=== PATIENT | male | born 1990 | race Two or more races ===

== ENCOUNTER 2017-03-14 22:24 | Emergency (ER) | payer OTHER ==
[~2017-03-14] VITALS: Ht 165.1 cm; Wt 74.8 kg
--- NOTE | 2017-03-14 23:15 | Emergency Room Report ---
History of Present Illness Time Seen by [id number] Presenting Problem in Triage Pt arrived:Wheelchair Presenting Problem:TOBACCO POISONING AFTER WORKING OUT IN [employer] TODAY Onset of symptoms date/time:03/14/17/ or onset unknown for:MEDICAL HX UNKNOWN Treatment Prior to Arrival: [employer] Provided by: Sepsis Risk Assessment: Temp: 98 B/P: 123/75 MAP: 91 Pulse: 76 Resp: 14 Recent fever? N Clinical Suspician of Infection? N Mental Status: 1 - Regular (Normal Baseline) Sepsis Risk:Low Sepsis Risk Have you (or family members/close friends) recently traveled outside the [place]? N If Yes, where/when: Have you had exposure to infectious disease within the past month? N TB? Other? Specify: Source patient, RN notes reviewed, family, old records Exam Limitations language barrier Comment n/v with abd pain after exposure to tob today Cardiac Chest Pain Chest pain indicative of cardiac No Timing/Duration this evening Severity moderate ALLERGIES Coded Allergies: No Known Drug Allergies (NKDA) (03/14/17) Home Medications Reported Medications ASPIRIN (Aspirin) 81 MG PO DAILY History Medical History General Hypertension? No CHF? No COPD? No Asthma? No CVA? No Seizures? No Diabetes? No TB? No Immunization Hx DT/Tetanus UNKNOWN Surgical Hx Previous Surgery?N Social History Smoking Hx Smoker: Never Smoker Tobacco: No Alcohol Alcohol: No Drugs none Review of Systems All Other Systems Reviewed and Negative Constitutional denies fever Eyes denies drainage ENT denies: ear discharge, epistaxis, throat pain. Respiratory denies cough, denies shortness of breath, denies wheezing Cardiovascular denies chest pain, denies palpitations, denies syncope Gastrointestinal see HPI, denies diarrhea, nausea, vomiting Genitourinary denies: dysuria, frequency, hesitancy, hematuria. Musculoskeletal denies back pain, denies joint pain, denies neck pain Skin denies rash Psychiatric/Neurological denies headache, denies seizure Physical Exam Vital Signs Vital Signs Date Time Temp Pulse Resp B/P Pulse O2 O2 Flow FiO2 Ox Delivery Rate 03/14 2243 98.0 76 14 123/75 99 - WBC >12,000 or <4,000 or 10% bands? 2 or more SIRS Criteria Met? B/P:123/75 MAP:91 Creatinine >2.0? UA output<0.5ml/kg/hr for 2 hrs? Platelet count >100,000? Lactate >2.0mmol/1? INR >1.2 or PTT > than 60 sec? Evidence of Organ Dysfunction? Provider documented clinical suspician of infection? N Sepsis Criteria Count: 0 Sepsis Risk: Low Sepsis Risk General Appearance no apparent distress Eye Exam - bilateral eye PERRL, bilateral eye EOMI Ear, Nose, Throat normal ENT inspection Neck supple Respiratory Status No: respiratory distress. Lung Sounds bilateral: lungs clear. 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 No Results/Orders Laboratory Tests 03/14/170: Sodium 134 L, Potassium 4.0, Chloride 101, Carbon Dioxide 26, BUN 18, Creatinine 1.0, Estimated Creat Clear 120, Estimated GFR (MDRD) 91, Glucose 125 H, Calcium 9.0, Total Bilirubin 0.4, AST 39 H, ALT 60, Alkaline Phosphatase 111 , Total Protein 7.9, Albumin 4.2, Globulin 3.7 H, Albumin/Globulin Ratio 1.1, Lipase 86, WBC 8.4, RBC 5.32, Hgb 15.4, Hct 45.8, MCV 86.1, RDW 12.3, Plt Count 282, MPV 6.7 L, Gran % 74.3, Gran # 6.2, Lymphocytes % 20.5, Monocytes % 3.8, Eosinophils % 0.7, Basophils % 0.6, Lymphocytes # 1.7, Monocytes # 0.3, Eosinophils # 0.1, Basophils # 0.1, PUBS MCHC 33.7, MCH 29.0 Current Medication Orders Sig/Val Start time Last Medication Dose Route Stop Time Status Admin Sodium Chloride 1,000 ML .STK-MED ONE 03/14 2310 DC IV Famotidine 0 .STK-MED ONE 03/14 2309 DC IV Metoclopramide HCl 0 .STK-MED ONE 03/14 2308 DC .ROUTE Ondansetron HCl 0 .STK-MED ONE 03/14 2308 DC .ROUTE Famotidine 20 MG ONCE ONE 03/14 2245 DC 03/14 IV 03/14 2246 2311 Metoclopramide HCl 10 MG ONCE ONE 03/14 2245 DC 03/14 IVP 03/14 2246 2312 Ondansetron HCl 4 MG ONCE ONE 03/14 2245 DC 03/14 IV 03/14 2246 2311 Sodium Chloride 10 ML PRN PRN 03/14 224 AC IV 03/15 224 Sodium Chloride 1,000 ML .Q1H1M 03/14 224 AC 03/14 IV 03/14 2345 2310 Sodium Chloride 10 ML PRN PRN 03/14 2245 AC IV 03/15 224 Sodium Chloride 8 ML ONCE ONE 03/14 2245 DC 03/14 IV 03/14 2246 2312 Orders Procedure Date/time Status IV SALINE LOCK 03/14 224 Active URINALYSIS/COMPLETE 03/14 2242 Active LIPASE 03/14 2242 Complete COMPLETE METABOLIC PANEL 03/14 2242 Complete CBC WITH AUTO DIFF 03/14 2242 Complete Departure Departure Time of Disposition 2320 Disposition DC Home or Self Care(routine) Clinical Impression Primary Impression: Tobacco poisoning Qualifiers: Encounter type: initial encounter Injury intent: accidental or unintentional Qualified Code: T65.291A - Toxic effect of other tobacco and nicotine, accidental (unintentional), initial encounter Condition STABLE Patient Instructions DI for Vomiting -- Adult Additional Instructions fluids and see pcp for follow up or recheck Discharge Counseling Counseled pt/family regarding diagnosis, test results, medications/RX, follow up needs ED Critical Care Critical Care No at 1880
[2017-03-14 23:17] LABS: HEMOGLOBIN 15.4 g/dL (14.1-18.0); LYMPH # 1.7 K/mm3 (0.7-4.5); LYMPH % 20.5 % (10-50)
[2017-03-15 00:25] VITALS: BP 144/94
== END 2017-03-15 00:26 | disposition home or self-care (01) ==
LOC: ER 22:24
PROVIDERS: Emergency Medicine
DX: T65.291A Toxic effect of other tobacco and nicotine, accidental (unintentional), initial encounter (principal); Y92.73 Farm field as the place of occurrence of the external cause; Z79.82 Long term (current) use of aspirin